=== PATIENT | female | born 1990 | race Caucasian/White ===

== ENCOUNTER 2016-09-03 16:05 | Emergency (ER) | payer BC ==
[~2016-09-03] VITALS: Ht 157.5 cm; Wt 59.0 kg
[~2016-09-03 16:05] MED LIST: ALBU8.5H3 INH; PRED20TA PO
[2016-09-03 16:20] VITALS: Ht 157.5 cm; Wt 59.0 kg
[2016-09-03] MEDS ORDERED: IPRATROPIUM (NEB) 0.5 MG/2.5 ML AMP NEB STA (17:13)
[2016-09-03] MEDS ORDERED: METHYLPREDNISOLONE 125 MG INJ IV STA (17:13)
[2016-09-03] MEDS ORDERED: SOD CHLORIDE 0.9% 1,000 ML IV STA (17:13)
[2016-09-03] MEDS ORDERED: ALBUTEROL 0.5% (NEB) 2.5 MG/0.5 ML AMP NEB STA (17:13)
--- NOTE | 2016-09-03 17:50 | RADRPT ---
PROCEDURE: XR CHEST AP PORTABLE CLINICAL INDICATION: Asthma TECHNIQUE: Single frontal view of the chest COMPARISON: 04/22/2016 FINDINGS: The cardiomediastinal silhouette and pulmonary vasculature are normal. The lungs are clear. The lungs are hyperinflated. No consolidation, effusion, or pneumothorax. The osseous structures are unremarkable. IMPRESSION: No acute cardiopulmonary process. Hyperinflated lungs. RPTAT:PP .Spencer Larose MD, MD Date Time Electronically viewed and signed by .Spencer Larose MD, on 09/03/2016 17:50 .V/
[2016-09-03 18:06] LABS: ADD SCAN DIFF NO
[2016-09-03 18:10] LABS: BASOPHIL # 0.1 10^3/ul (0.0-0.1); BASOPHILS % 0.6 % (0.0-2.0); EOSINOPHILS # 1.5 10^3/ul (0.0-0.5); EOSINOPHILS % 11.3 % (0.0-7.0); HEMATOCRIT 38.7 % (37.0-47.0); LYMPHOCYTES # 3.8 10^3/ul (0.8-2.9); LYMPHOCYTES % 28.4 % (15.0-51.0); MEAN CORPUSCULAR HEMOGLOBIN 25.6 pg (29.0-33.0); MEAN CORPUSCULAR VOLUME 82.7 fl (82.0-101.0); MEAN PLATELET VOLUME 10.8 fl (7.4-10.4); MONOCYTE # 1.1 10^3/ul (0.3-0.9); NEUTROPHIL # 6.8 10^3/ul (1.6-7.5); NEUTROPHILS % 51.4 % (39.0-77.0); PLATELET COUNT 372 10^3/UL (140-415); RED BLOOD COUNT 4.68 10^6/ul (4.20-5.40); RED CELL DISTRIBUTION WIDTH 17.8 % (11.5-14.5); WHITE BLOOD COUNT 13.2 10^3/ul (4.8-10.8)
[2016-09-03 18:23] LABS: ALBUMIN 4.2 g/dl (3.3-4.9)
[2016-09-03 18:24] LABS: POTASSIUM 4.1 mmol/L (3.5-5.1)
[2016-09-03 18:26] LABS: ALBUMIN/GLOBULIN RATIO 1.2; BILIRUBIN,INDIRECT 0.1 mg/dl (0-1.1); BILIRUBIN,TOTAL 0.1 mg/dl (0.2-1.3); CREATININE 0.65 mg/dl (0.44-1.00); TOTAL PROTEIN 7.7 g/dl (6.1-8.1)
[2016-09-03] MEDS ORDERED: ALBUTEROL 0.083% (NEB) 2.5 MG/3 ML AMP HHN STA (18:55)
[2016-09-03] MEDS ORDERED: IPRATROPIUM (NEB) 0.5 MG/2.5 ML AMP HHN ONE (19:00)
[2016-09-03] MEDS ORDERED: PRED20TA PO (20:35)
[2016-09-03] MEDS ORDERED: ALBU2.5V3 NEB (20:35)
[2016-09-03] MEDS ORDERED: ALBU18HF INHALATION (20:35)
--- NOTE | 2016-09-03 20:38 | ERD ---
ER Documentation Chief Complaint Date/Time DATE: 09/03/16 TIME: 20:37 Chief Complaint SOB,HX ASTHMA,COUGH HPI This 25-year-old female presents with asthma and wheezing over the last 3 days. She was seen approximately 5 days ago for asthma and another hospital and given prednisone 20 mg by mouth for 4 days. She has completed her prednisone and complains of persistent wheezing. She has a nebulizer at home is using it and continues wheezing. Denies fevers, chest pain, blood, abdominal pain or vomiting. She has a history of hospitalization with asthma last approximately 1 -2 years ago. ROS All systems reviewed and are negative except as per history of present illness. Medications Home Meds Active Scripts Albuterol Sulfate* (Ventolin HFA*) 18 Gm Hfa.aer.ad, 2 PUFF INHALATION Q4H, #1 INHALER Prov:ENRIQUE MCGRATH MD 09/03/16 Albuterol Sulfate* (Albuterol Sulfate* Neb) 0.083%-3 Ml Neb, 2.5 MG NEB Q4 Y for SHORTNESS OF BREATH, #30 EA Prov:ENRIQUE MCGRATH MD 09/03/16 Prednisone* (Prednisone*) 20 Mg Tab, 60 MG PO DAILY for 6 Days, TAB 60 mg by mouth for 3 days then 40 mg by mouth 3 days Prov:ENRIQUE MCGRATH MD 09/03/16 Prednisone* (Prednisone*) 20 Mg Tab, 60 MG PO DAILY for 5 Days, TAB Prov:OSORIO PANG MD 04/23/16 Albuterol Sulfate* (Proair HFA*) 8.5 Gm Hfa.aer.ad, 2 PUFF INH Q4H Y for WHEEZING AND SOB, #1 INHALER Prov:OSORIO PANG MD 04/23/16 Allergies Allergies: Coded Allergies: No Known Allergy (Verified , 04/22/16) PMhx/Soc History of Surgery: No Anesthesia Reaction: No Hx Neurological Disorder: No Hx Respiratory Disorders: Yes (Asthma) Hx Cardiac Disorders: No Hx Psychiatric Problems: No Hx Miscellaneous Medical Probl: No Hx Alcohol Use: No Hx Substance Use: No Hx Tobacco Use: No Physical Exam Vitals Vital Signs Date Time Temp Pulse Resp B/P Pulse Ox O2 Delivery O2 Flow Rate FiO2 09/03/16 19:00 89 24 100 21 09/03/16 18:11 79 18 97 21 09/03/16 16:20 98.3 99 18 122/74 97 Physical Exam Const: [] Alert, not ill-appearing. Head: Atraumatic Eyes: Normal Conjunctiva ENT: Normal External Ears, Nose and Mouth. Neck: Full range of motion..~ No meningismus. Resp: Clear to auscultation bilaterally. Diffuse wheezing without rales or retractions. Cardio: Regular rate and rhythm, no murmurs Abd: Soft, non tender, non distended. Normal bowel sounds Skin: No petechiae or rashes Back: No midline or flank tenderness Ext: No cyanosis, or edema Neur: Awake and alert Psych: Normal Mood and Affect Result Diagram: 09/03/16 1728 09/03/16 1728 Results 24 hrs Laboratory Tests Test 09/03/16 17:28 White Blood Count 13.210^3/ul Red Blood Count 4.6810^6/ul Hemoglobin 12.0g/dl Hematocrit 38.7% Mean Corpuscular Volume 82.7fl Mean Corpuscular Hemoglobin 25.6pg Mean Corpuscular Hemoglobin Concent 31.0g/dl Red Cell Distribution Width 17.8% Platelet Count 54229^3/UL Mean Platelet Volume 10.8fl Neutrophils % 51.4% Lymphocytes % 28.4% Monocytes % 8.0% Eosinophils % 11.3% Basophils % 0.6% Nucleated Red Blood Cells % 0.0/100WBC Neutrophils # 6.810^3/ul Lymphocytes # 3.810^3/ul Monocytes # 1.110^3/ul Eosinophils # 1.510^3/ul Basophils # 0.110^3/ul Nucleated Red Blood Cells # 0.010^3/ul Sodium Level 145mmol/L Potassium Level 4.1mmol/L Chloride Level 104mmol/L Carbon Dioxide Level 27mmol/L Anion Gap 18 Blood Urea Nitrogen 13mg/dl Creatinine 0.65mg/dl Glucose Level 90mg/dl Calcium Level 9.0mg/dl Total Bilirubin 0.1mg/dl Direct Bilirubin 0.00mg/dl Indirect Bilirubin 0.1mg/dl Aspartate Amino Transf (AST/SGOT) 30IU/L Alanine Aminotransferase (ALT/SGPT) 33IU/L Alkaline Phosphatase 73IU/L Total Protein 7.7g/dl Albumin 4.2g/dl Globulin 3.50g/dl Albumin/Globulin Ratio 1.20 Current Medications Medications (Trade) Dose Ordered Sig/Nena Route PRN Reason Start Time Stop Time Status Last Admin Dose Admin Sodium Chloride (NS) 1,000 ml @ 1,000 mls/hr Q1H STAT IV 09/03/16 17:13 09/03/16 18:12 DC 09/03/16 17:32 Albuterol (Proventil 0.5% (Neb)) 10 mg ONCE STAT NEB 09/03/16 17:13 09/03/16 17:15 DC 09/03/16 18:09 Ipratropium [place] (Atrovent 0.02% (Neb)) 0.5 mg ONCE STAT NEB 09/03/16 17:13 09/03/16 17:15 DC 09/03/16 18:09 Methylprednisolone Sodium Succinate (Solu-Medrol) 125 mg ONCE STAT IV 09/03/16 17:13 09/03/16 17:15 DC 09/03/16 17:31 Albuterol (Proventil 0.083% (Neb)) 10 mg ONCE STAT HHN 09/03/16 18:55 09/03/16 18:56 DC 09/03/16 19:12 Ipratropium [place] (Atrovent 0.02% (Neb)) 1 mg ONCE ONCE HHN 09/03/16 19:00 09/03/16 19:01 DC 09/03/16 19:12 Procedures/MDM I views obtained patient was given 1 L normal saline IV, 125 mg Solu-Medrol IV, CBC shows white blood cell count 13.2. CMP is normal. Patient was given 1 hour continuous treatment of albuterol and had improved breath sounds and no evidence of hypoxemia on serial exam without retractions or rales. She had minimal residual wheeze. Patient better and feels comfortable going home and given nebulizer treatments at home. Patient appears to have received small dose of prednisone on her prior visit and will be discharged home instructions for 60 mg a day for 3 days and 40 mg a day for 3 days. Patient is advised to recheck for new or worsening symptoms with primary care doctor. Chest X-ray 1V Interpreted by me: Soft Tissue: No acute abnormalities Bones: No acute abnormalities Mediastinum/Cardiac Silhouette/Lungs: [No acute abnormalities]. Impression- normal 1 view chest x-ray Departure Diagnosis: Primary Impression: Asthma Asthma severity: unspecified severity Asthma complication type: uncomplicated Qualified Code: J45.909 - Uncomplicated asthma, unspecified asthma severity Condition: Stable Patient Instructions: Asthma, Acute (Adult) Additional Instructions: Recheck for new or worsening symptoms or with primary care doctor. ENRIQUE MCGRATH MD Sep 03, 2016 20:38
[2016-09-03 20:46] VITALS: BP 119/82; PULSE 103; RESP 18; TEMP 98.3
== END 2016-09-03 20:49 | disposition home or self-care (01) ==
LOC: FTE 16:05
DX: J45.901 Unspecified asthma with (acute) exacerbation (principal)
CPT/HCPCS: 71010; 80053; 85025; 94644; 94664; 96374; 99284; J2930; J7030; Z7610